=== PATIENT | female | born 1995 | race Caucasian/White ===

== ENCOUNTER 2021-06-20 03:11 | Inpatient (IN) ==
[2021-06-20] MEDS ORDERED: ceFAZolin 2000MG 2,000 MG/15 ML SYR IV SCH (06:00)
[2021-06-20] MEDS ORDERED: CITRIC ACID/SODIUM CITRATE 15 ML UDC PO SCH (06:00)
[2021-06-20] MEDS ORDERED: LACTATED RINGER'S 1,000 ML IV SCH ×3 (07:00→09:30)
[2021-06-20] MEDS ORDERED: TERBUTALINE SULFATE 1 MG/ML VIAL SQ ONE (07:02)
[2021-06-20 07:07] LABS: Basophils # (auto) 0.03 K/uL (0-0.2); Basophils % (auto) 0.2 %; Eosinophils # (auto) 0.46 K/uL (0-0.5); Hematocrit (blood only) 39.5 % (37-47); Hemoglobin 13.5 g/dL (12.0-16.0); Immature Granulocytes # (auto) 0.12 K/uL (0.00-0.02); Immature Granulocytes % (auto) 0.8 %; Lymphocytes # (auto) 2.19 K/uL (1.2-3.4); Lymphocytes % (auto) 14.1 %; Mean Corpuscular Hemoglobin 32.6 pg (25-34); Mean Corpuscular Hgb Conc 34.2 g/dL (32-36); Mean Corpuscular Volume 95.4 fL (80-100); Monocytes # (auto) 0.77 K/uL (0.11-0.59); Neutrophils # (auto) 11.94 K/uL (1.4-6.5); Neutrophils % (auto) 76.9 %; Platelet Count 190 K/uL (130-400); RDW Coefficient of Variation 13.9 % (11.5-14.5); RDW Standard Deviation 48.6 fL (36.4-46.3); Red Blood Count 4.14 M/uL (4.2-5.4); White Blood Count 15.51 K/uL (4.8-10.8)
--- NOTE | 2021-06-20 07:30 | Anesthesiology Consultation ---
Date of Service June 20, 2021 Assessment & Plan (1) Encounter for pre-operative examination: Chart Review Chart Review: Acceptable Risk for Surgery and Patient NOT seen in Pre Admission Testing Consults Requested none History Surgery Operation Date: 06/20/21 07:30 Proposed Procedures p Section in OR - Baltazar Peña MD Height/Weight Height: 5 ft 7 in Weight: 97.522 kg Allergies Allergy/AdvReac Type Severity Reaction Status Date / Time No Known Allergies Allergy Unknown ` Unverified 06/15/21 16:03 Medications Home Medications Medication Instructions Recorded Confirmed Last Taken folic acid 400 mcg tablet 0.4 mg PO HS 06/15/21 06/15/21 Unknown loratadine 10 mg tablet (Claritin) 10 mg PO HS 06/15/21 06/15/21 Unknown [id number] 1 mg 1 tab PO HS 06/15/21 06/15/21 Unknown tablet propranolol 80 mg tablet 80 mg PO HS 06/15/21 06/15/21 Unknown Active Medications Generic Name Dose Route Start Last Admin Trade Name Inocente PRN Reason Stop Dose Admin Lactated Ringer's 1,000 mls @ 999 mls/hr 06/20/21 07:00 06/20/21 07:00 Lr IV 06/20/21 08:00 999 mls/hr .[id number] ALEJANDRO Administration NPO Date Last Intake of Fluids: 06/20/21 Time Last Intake of Fluids: 06:30 Date Last Intake of Solids: 06/19/21 Time Last Intake of Solids: 20:00 Past Medical History Medical History History of migraine Inappropriate sinus tachycardia follows with dr. artemio PAIGE (postoperative nausea and vomiting) Past Family History Family History Mother PONV (postoperative nausea and vomiting) Past Surgical History Surgical History History of cardiac radiofrequency ablation attempted ablation -- unable to complete per pt report History of mandibular surgery hardware present History of tonsillectomy and adenoidectomy History of wisdom tooth extraction Social History Smoking Status: Never smoker Do You Dip or Chew Tobacco: No Hx Alcohol Use: No Hx Substance Use: No substance use type: does not use Physical Exam Vital Signs Last Vital Signs Temp 36.5 C 06/20/21 03:37 Pulse 92 H 06/20/21 07:24 Resp 16 06/20/21 03:37 BP 135/82 06/20/21 03:37 Pulse Ox 100 06/20/21 07:24 Testing Laboratory Results 06/20/21 06:58
[2021-06-20] MEDS ORDERED: LACTATED RINGER'S 500 ML IV PRN (07:33)
[2021-06-20] MEDS ORDERED: KETOROLAC 30 MG/ML VIAL IV PRN (07:33)
[2021-06-20] MEDS ORDERED: MoRPHine SULFATE PF 1 MG/ML 10 ML AMP/VIAL INT SPINAL ONE (07:33)
[2021-06-20] MEDS ORDERED: HYDROmorphone INJ 0.5 MG/0.5 ML SYR IV PRN (07:33)
[2021-06-20] MEDS ORDERED: ONDANSETRON INJ 2 MG/ML 2 ML VIAL IV PRN (07:33)
[2021-06-20] MEDS ORDERED: NALOXONE HCL 1 MG in SODIUM CHLORIDE 0.9% 1000ML 1,000 ML IV PRN (07:33)
[2021-06-20] MEDS ORDERED: NALOXONE HCL 0.08 MG in SYRINGE 1.8 ML IV PRN (07:33)
[2021-06-20] MEDS ORDERED: NALOXONE HCL 0.4 MG/1 ML VIAL/CARP IV PRN (07:33)
[2021-06-20] MEDS ORDERED: diphenhydrAMINE 50 MG/ML VIAL IV PRN (07:33)
[2021-06-20] MEDS ORDERED: ePHEDrine sulfate 50 MG/ML AMP IV PRN (07:33)
[2021-06-20] MEDS ORDERED: NALBUPHINE HCL INJ 10 MG/ML AMP IV PRN (07:33)
[2021-06-20] MEDS ORDERED: fentaNYL citrate 100 MCG/2 ML VIAL ONE (07:36)
[2021-06-20] MEDS ORDERED: MoRPHine SULFATE PF 1 MG/ML 10 ML AMP/VIAL ONE (07:36)
[2021-06-20] MEDS ORDERED: OXYTOCIN 10 UNITS/ML 10ML VIAL ONE ×2 (07:36→08:05)
[2021-06-20] MEDS ORDERED: NO NARCOTICS OR SEDATIVES SCH (07:45)
[2021-06-20] MEDS ORDERED: SODIUM CHLORIDE 0.9% 1000ML 1,000 ML IV SCH (07:45)
[2021-06-20] MEDS ORDERED: PHENYLEPHRINE 100MCG/ML 5ML SYR ONE (07:51)
[2021-06-20] MEDS ORDERED: ONDANSETRON INJ 2 MG/ML 2 ML VIAL ONE (07:52)
[2021-06-20] MEDS ORDERED: METHYLERGONOVINE MALEATE 0.2 MG/ML AMP ONE (08:10)
[2021-06-20] MEDS ORDERED: miSOPROStoL 200 MCG TAB ONE (08:34)
[2021-06-20 08:35] LABS: Base Excess Cord Arterial Bld -1.5 mEq/L (-9-1.8); CO2 Cord Arterial Blood 64 mmHg (39.1-73.5); HCO3 Cord Arterial Blood 28 mmol/L (19.7-28.5); pH Cord Arterial Blood 7.25 (7.1-7.38)
[2021-06-20] MEDS ORDERED: OXYTOCIN 10 UNITS/ML 10ML VIAL IM ONE (08:38)
[2021-06-20 08:40] LABS: Base Excess Cord Venous Blood -1.7 mEq/L (-7.7-1.9); Cord Venous Blood HCO3 24 mmol/L (18.4-26.8); Cord Venous Blood PCO2 44 mmHg (30.4-57.2); Cord Venous Blood PO2 19 mmHg (14.1-43.3); Cord Venous Blood pH 7.36 (7.20-7.44)
[2021-06-20 08:43] LABS: O2 Saturation Cord Venous Bld < 60.0 % (<68); Oxygen Sat Cord Arterial Blood < 60.0 % (<60); PO2 Cord Arterial Blood < 10 mmHg (4.1-31.7)
[2021-06-20] MEDS ORDERED: HYDROCORTISONE ACETATE 25 MG SUPP PR PRN (09:22)
[2021-06-20] MEDS ORDERED: SENNA 8.6 MG TAB PO PRN (09:22)
[2021-06-20] MEDS ORDERED: BENZOCAINE 20% AER SPR 82.5 GM CAN EXT PRN (09:22)
[2021-06-20] MEDS ORDERED: MAGNESIUM HYDROXIDE SUSP 30 ML UDC PO PRN (09:22)
[2021-06-20] MEDS ORDERED: DIPHTHERIA/TETANUS/PERTUSSIS 0.5 ML SYR/VIAL IM ONE (09:22)
--- NOTE | 2021-06-20 09:22 | Post Operative Brief Note ---
Immediate Post Op Note v1 Date of Surgery June 20, 2021 Pre & Post Diagnosis Operation Date: 06/20/21 07:30 Pre-Op Diagnosis: Breech Presentation in labor Post-Op Diagnosis: Breech Presentation in labor I identified the patient and participated in the time-out.: Yes Procedure Operation Date: 06/20/21 07:30 Actual Procedures p Section in LD - Baltazar Peña MD Surgeon Baltazar Peña MD Sheet [facility] dr joel Estimated Blood Loss 500 Findings Consistent with Post-Op Diagnosis Drains Verma Catheter (inserted after spinal with return of clear yellow urine)
--- NOTE | 2021-06-20 10:26 | Operative Report (OR) ---
DATE OF SURGERY: 06/20/2021. INDICATION FOR SURGERY: This is a 26-year-old , due date was 06/23/2021. The patient is 39 wee ks and 4 days. The patient was scheduled for section because of breech presentation on 12/2021. The patient, however, presented early this morning in labor, decision was therefore made to proceed with section. PREOPERATIVE DIAGNOSES: 1. at term. 2. Breech presentation, failed external version. SURGEON: Baltazar Peña MD. CLAIM APPROVER: Patrick De León MD. ANESTHESIA: Spinal. DRAINS: Verma catheter. ESTIMATED BLOOD LOSS: 500 mL. INTRAVENOUS FLUIDS: 2 liters. URINE OUTPUT: 175 mL of clear urine at the end of procedure. SPECIMEN: Live in a [place]ee breech presentation. Placenta is sent to pathology for pathologica l analysis. INTRAOPERATIVE COMPLICATIONS: None. PATIENT CONDITION: Stable. DISPOSITION: Postanesthesia care unit. FINDINGS: Normal female escutcheon. Abdominal findings shows in a [place] breech presentation. Uterus and adnexa appeared grossly normal. Abdomen and pelvis otherwise unremarkable. DESCRIPTION OF PROCEDURE: The patient was taken to the operating room where she was prepped and drap ed in normal sterile fashion. Timeout was called. A Pfannenstiel incision was made with a scalpel a nd carried down to the fascia. Fascia was incised in the midline and extended laterally on both side s. The fascia was sharply dissected off the rectus abdominis muscle. This was done superiorly and i nferiorly. Peritoneum was entered sharply. Once inside the abdomen, an Trevon retractor was placed for retraction. The vesicouterine peritoneum was sharply dissected off the lower segment of the uterus. Low transver se incision was made with a scalpel and extended laterally on both sides with bandage scissors. Infa nt is delivered using breech maneuvers. Delivery was unremarkable. Delayed cord clamp was performed after 1 minute. was handed over to the pediatric team. 's weight is in the pediatric record. Apgars 8 and 9. Cord blood and cord gases were obtained. Placenta was manually removed. Uterus was exteriorized and cleared of all clots and debris. Uterus was closed in 2 layers with Vicryl. There was good hemosta sis post repair. Copious amount of irrigation was used to irrigate the abdomen. Uterus was returned into the abdominal cavity and vesicouterine peritoneum was reapproximated using plain suture. Once again, hemostasis was obtained. Peritoneum was closed using plain suture. Fascia was closed using V icryl stitch. Subcutaneous space showed good hemostasis. Subcutaneous space was reapproximated with plain suture and the skin was closed with dillon. All instruments were removed from the abdomen and accounted for x2 including sponges, retractors and needles. The patient is doing well and was sent to recovery in stable condition. Job ID: [id number]
[2021-06-20] MEDS: OXYTOCIN 20 UNITS in LACTATED RINGER'S 1,000 ML IV SCH ×2 (11:34→20:05)
--- NOTE | 2021-06-20 11:58 | Anesthesiology Progress Note ---
Date of Service June 20, 2021 Anesthesia Post Procedure Vital Signs Vital Signs: Temp Pulse Resp BP Pulse Ox 06/20/21 11:03 70 97 06/20/21 10:58 73 96 06/20/21 10:56 76 125/61 06/20/21 10:53 67 96 06/20/21 10:50 36.6 C 20 06/20/21 10:48 70 96 06/20/21 10:46 66 113/68 06/20/21 10:43 71 96 06/20/21 10:38 69 95 06/20/21 10:35 69 121/68 06/20/21 10:33 76 96 06/20/21 10:28 79 96 06/20/21 10:25 70 118/58 L 06/20/21 10:23 78 96 06/20/21 10:20 20 06/20/21 10:18 72 95 06/20/21 10:16 77 113/53 L 06/20/21 10:13 77 96 06/20/21 10:08 74 94 06/20/21 10:06 69 107/47 L 06/20/21 10:03 81 94 06/20/21 09:59 70 108/54 L 06/20/21 09:58 75 96 06/20/21 09:53 81 95 06/20/21 09:50 36.4 C L 20 06/20/21 09:48 83 96 06/20/21 09:45 78 102/55 L 06/20/21 09:43 81 94 06/20/21 09:40 20 06/20/21 09:38 72 96 06/20/21 09:35 68 91/47 L 06/20/21 09:33 71 96 06/20/21 09:30 20 06/20/21 09:28 71 95 06/20/21 09:25 71 100/49 L 06/20/21 09:23 69 95 06/20/21 09:21 79 92 06/20/21 09:20 16 06/20/21 09:18 88 89 L 06/20/21 09:16 96 H 104/54 L 06/20/21 09:15 86 91 06/20/21 09:12 76 100 06/20/21 09:10 20 06/20/21 09:07 96 H 80 L 06/20/21 09:06 74 101/56 L 06/20/21 09:01 75 99 06/20/21 09:00 20 06/20/21 08:57 71 91 06/20/21 08:56 70 97 06/20/21 08:50 69 99 06/20/21 08:47 36.4 C L 72 20 94/47 L 06/20/21 08:45 74 100 06/20/21 07:29 77 134/83 98 06/20/21 07:24 92 H 100 06/20/21 03:37 36.5 C 90 16 135/82 06/20/21 03:27 90 135/82 Transfer of Care Handoff Completed per policy Notes Mental Status: alert / awake / arousable Patient Amnestic to Procedure: Yes Nausea / Vomiting: adequately controlled Pain: adequately controlled Airway Patency, RR, SpO2: stable & adequate BP & HR: stable & adequate Hydration State: stable & adequate Neuraxial Anesthesia: was administered and sensory block is resolving Anesthetic Complications: no major complications apparent and Pt Satisfied with anesthetic care
[2021-06-20] MEDS: SIMETHICONE 80 MG CHEW PO SCH ×3 (16:31→20:57)
[2021-06-20] MEDS: DOCUSATE SODIUM 100 MG CAP PO SCH (20:57)
[2021-06-21] MEDS ORDERED: ONDANSETRON INJ 2 MG/ML 2 ML VIAL IV PRN (01:33)
[2021-06-21] MEDS ORDERED: IBUPROFEN 600 MG TAB PO PRN (01:33)
[2021-06-21] MEDS ORDERED: DC INTRASPINAL MORPHINE SCH (01:33)
[2021-06-21] MEDS ORDERED: diphenhydrAMINE 50 MG/ML VIAL IV PRN (01:33)
[2021-06-21] MEDS ORDERED: diphenhydrAMINE Capsule 25 MG CAP PO PRN (01:33)
[2021-06-21] MEDS ORDERED: PROMETHAZINE HCL 25 MG in SODIUM CHLORIDE 0.9% 50 ML IV PRN (01:33)
[2021-06-21] MEDS: oxyCODONE/ACETAMINOPHEN 5mg/325mg TAB PO PRN ×5 (01:53→18:39)
[2021-06-21 06:48] LABS: Basophils # (auto) 0.02 K/uL (0-0.2); Basophils % (auto) 0.1 %; Eosinophils # (auto) 0.15 K/uL (0-0.5); Eosinophils % (auto) 1.1 %; Hematocrit (blood only) 34.5 % (37-47); Hemoglobin 11.7 g/dL (12.0-16.0); Immature Granulocytes # (auto) 0.04 K/uL (0.00-0.02); Immature Granulocytes % (auto) 0.3 %; Lymphocytes # (auto) 1.51 K/uL (1.2-3.4); Lymphocytes % (auto) 11.3 %; Mean Corpuscular Hemoglobin 32.5 pg (25-34); Mean Corpuscular Hgb Conc 33.9 g/dL (32-36); Mean Corpuscular Volume 95.8 fL (80-100); Mean Platelet Volume 9.9 fL (7.4-10.4); Monocytes # (auto) 0.78 K/uL (0.11-0.59); Monocytes % (auto) 5.8 %; Neutrophils # (auto) 10.92 K/uL (1.4-6.5); Neutrophils % (auto) 81.4 %; Platelet Count 150 K/uL (130-400); RDW Coefficient of Variation 13.8 % (11.5-14.5); RDW Standard Deviation 47.5 fL (36.4-46.3); White Blood Count 13.42 K/uL (4.8-10.8)
[2021-06-21] MEDS: FERROUS SULFATE 325 MG TAB PO SCH (08:06)
[2021-06-21] MEDS: PRENATAL VITAMIN 1 TAB PO SCH (08:06)
[2021-06-21] MEDS: DOCUSATE SODIUM 100 MG CAP PO SCH ×2 (08:06→20:19)
[2021-06-21] MEDS: SIMETHICONE 80 MG CHEW PO SCH ×4 (08:06→20:19)
--- NOTE | 2021-06-21 09:48 | Obstetrical Progress Note ---
Date of Service June 21, 2021 Subjective Ambulation: limited ambulation Voiding: no voiding problems Passing Gas:: Yes Diet Tolerance:: regular diet Lochia:: Small Feeding Type:: breast feeding Current Pain Level(1-10): 0 doing well Physical Exam Constitutional WD/WN, vitals as above comfortable abdomen soft and non-tender fundus firm incision c/d/i no edema neg Iraj's Results & Data ([facility]) Vital Signs (Past 12 Hours) Vital Signs Temp Pulse Resp BP BP Pulse Ox 06/21/21 08:15 36.5 C 97 H 18 131/89 98 06/21/21 03:25 36.8 C 89 16 126/76 98 06/21/21 01:35 16 97 06/21/21 00:09 16 96 06/20/21 23:15 37.1 C 93 H 16 118/69 95 06/20/21 22:15 16 96 Laboratory Results Laboratory Results - last 48 hr 06/20/21 06/20/21 06/20/21 06:58 08:19 08:19 WBC 15.51 H RBC 4.14 L Hgb 13.5 Hct 39.5 MCV 95.4 MCH 32.6 MCHC 34.2 RDW Std Deviation 48.6 H RDW Coeff of Daysi 13.9 Plt Count 190 MPV 10.0 Immature Gran % (Auto) 0.8 Neut % (Auto) 76.9 Lymph % (Auto) 14.1 [place] % (Auto) 5.0 Eos % (Auto) 3.0 Baso % (Auto) 0.2 Neut # (Auto) 11.94 H Lymph # (Auto) 2.19 [place] # (Auto) 0.77 H Eos # (Auto) 0.46 Baso # (Auto) 0.03 Immature Gran # (Auto) 0.12 H Cord ABG pH 7.25 Cord ABG pCO2 64 Cord ABG pO2 < 10 Cord ABG HCO3 28 Cord ABG Base Excess -1.5 Cord ABG O2 Sat < 60.0 Cord VBG pH 7.36 Cord VBG pCO2 44 Cord VBG pO2 19 Cord VBG HCO3 24 Cord VBG Base Excess -1.7 Cord VBG O2 Sat < 60.0 Barometric Pressure 736.3 736.3 Blood Gas Comments MEADOWS MEADOWS 06/21/21 06:19 WBC 13.42 H RBC 3.60 L Hgb 11.7 L Hct 34.5 L MCV 95.8 MCH 32.5 MCHC 33.9 RDW Std Deviation 47.5 H RDW Coeff of Daysi 13.8 Plt Count 150 MPV 9.9 Immature Gran % (Auto) 0.3 Neut % (Auto) 81.4 Lymph % (Auto) 11.3 [place] % (Auto) 5.8 Eos % (Auto) 1.1 Baso % (Auto) 0.1 Neut # (Auto) 10.92 H Lymph # (Auto) 1.51 [place] # (Auto) 0.78 H Eos # (Auto) 0.15 Baso # (Auto) 0.02 Immature Gran # (Auto) 0.04 H Cord ABG pH Cord ABG pCO2 Cord ABG pO2 Cord ABG HCO3 Cord ABG Base Excess Cord ABG O2 Sat Cord VBG pH Cord VBG pCO2 Cord VBG pO2 Cord VBG HCO3 Cord VBG Base Excess Cord VBG O2 Sat Barometric Pressure Blood Gas Comments
[2021-06-21] MEDS ORDERED: bisacodyL 5 MG TABEC PO SCH (20:00)
[2021-06-21] MEDS ORDERED: PROPRANOLOL HCL LA 80 MG CAPCR PO SCH (21:00)
[2021-06-22] MEDS: oxyCODONE/ACETAMINOPHEN 5mg/325mg TAB PO PRN ×4 (00:40→12:10)
[2021-06-22 07:06] LABS: Hematocrit (blood only) 37.1 % (37-47); Hemoglobin 12.5 g/dL (12.0-16.0)
[2021-06-22] MEDS: SIMETHICONE 80 MG CHEW PO SCH ×2 (08:22→12:10)
[2021-06-22] MEDS: PRENATAL VITAMIN 1 TAB PO SCH (08:22)
[2021-06-22] MEDS: DOCUSATE SODIUM 100 MG CAP PO SCH (08:22)
[2021-06-22] MEDS: FERROUS SULFATE 325 MG TAB PO SCH (08:22)
--- NOTE | 2021-06-22 08:37 | Obstetrical Progress Note ---
Date of Service June 22, 2021 Assessment & Plan Admission and Anticipated Discharge Date Admission Date: June 20, 2021 Subjective Patient is seen and examined. She feels well, no complaints. Desires d/c today Pain is under control with oral meds. Ambulating without dizziness Voiding without difficulty Tolerating regular diet with out N&V Flatus + BM + Bleeding is minimal No fever/ chills/ CP/ SOB/ N&V/ Leg pain Breast feeding without problems Vital Signs Temp Pulse Resp BP BP Pulse Ox 06/22/21 07:35 36.5 C 93 H 20 138/87 99 06/22/21 02:55 73 121/77 06/22/21 00:50 36.7 C 104 H 20 148/91 H 96 06/21/21 15:35 37.1 C 100 H 18 124/77 96 Lab Results 06/20/21 06/20/21 06/20/21 Range/Units 06:58 08:19 08:19 WBC 15.51 H (4.8-10.8) K/uL RBC 4.14 L (4.2-5.4) M/uL Hgb 13.5 (12.0-16.0) g/dL Hct 39.5 (37-47) % MCV 95.4 (80-100) fL MCH 32.6 (25-34) pg MCHC 34.2 (32-36) g/dL RDW Std Deviation 48.6 H (36.4-46.3) fL RDW Coeff of Daysi 13.9 (11.5-14.5) % Plt Count 190 (130-400) K/uL MPV 10.0 (7.4-10.4) fL Immature Gran % (Auto) 0.8 % Neut % (Auto) 76.9 % Lymph % (Auto) 14.1 % [place] % (Auto) 5.0 % Eos % (Auto) 3.0 % Baso % (Auto) 0.2 % Neut # (Auto) 11.94 H (1.4-6.5) K/uL Lymph # (Auto) 2.19 (1.2-3.4) K/uL [place] # (Auto) 0.77 H (0.11-0.59) K/uL Eos # (Auto) 0.46 (0-0.5) K/uL Baso # (Auto) 0.03 (0-0.2) K/uL Immature Gran # (Auto) 0.12 H (0.00-0.02) K/uL Cord ABG pH 7.25 (7.1-7.38) Cord ABG pCO2 64 (39.1-73.5) mmHg Cord ABG pO2 < 10 (4.1-31.7) mmHg Cord ABG HCO3 28 (19.7-28.5) mmol/L Cord ABG Base Excess -1.5 (-9-1.8) mEq/L Cord ABG O2 Sat < 60.0 (<60) % Cord VBG pH 7.36 (7.20-7.44) Cord VBG pCO2 44 (30.4-57.2) mmHg Cord VBG pO2 19 (14.1-43.3) mmHg Cord VBG HCO3 24 (18.4-26.8) mmol/L Cord VBG Base Excess -1.7 (-7.7-1.9) mEq/L Cord VBG O2 Sat < 60.0 (<68) % Barometric Pressure 736.3 736.3 mm/Hg Blood Gas Comments DORI MEADOWS 06/21/21 06/22/21 Range/Units 06:19 06:32 WBC 13.42 H (4.8-10.8) K/uL RBC 3.60 L (4.2-5.4) M/uL Hgb 11.7 L 12.5 (12.0-16.0) g/dL Hct 34.5 L 37.1 (37-47) % MCV 95.8 (80-100) fL MCH 32.5 (25-34) pg MCHC 33.9 (32-36) g/dL RDW Std Deviation 47.5 H (36.4-46.3) fL RDW Coeff of Daysi 13.8 (11.5-14.5) % Plt Count 150 (130-400) K/uL MPV 9.9 (7.4-10.4) fL Immature Gran % (Auto) 0.3 % Neut % (Auto) 81.4 % Lymph % (Auto) 11.3 % [place] % (Auto) 5.8 % Eos % (Auto) 1.1 % Baso % (Auto) 0.1 % Neut # (Auto) 10.92 H (1.4-6.5) K/uL Lymph # (Auto) 1.51 (1.2-3.4) K/uL [place] # (Auto) 0.78 H (0.11-0.59) K/uL Eos # (Auto) 0.15 (0-0.5) K/uL Baso # (Auto) 0.02 (0-0.2) K/uL Immature Gran # (Auto) 0.04 H (0.00-0.02) K/uL Cord ABG pH (7.1-7.38) Cord ABG pCO2 (39.1-73.5) mmHg Cord ABG pO2 (4.1-31.7) mmHg Cord ABG HCO3 (19.7-28.5) mmol/L Cord ABG Base Excess (-9-1.8) mEq/L Cord ABG O2 Sat (<60) % Cord VBG pH (7.20-7.44) Cord VBG pCO2 (30.4-57.2) mmHg Cord VBG pO2 (14.1-43.3) mmHg Cord VBG HCO3 (18.4-26.8) mmol/L Cord VBG Base Excess (-7.7-1.9) mEq/L Cord VBG O2 Sat (<68) % Barometric Pressure mm/Hg Blood Gas Comments PE: General: Alert, orientedx3, NAD CVS: S1S2 RRR Lungs; CTAB Abd: soft, NT, ND, BS+, fundus firm, below Umbilicus Incision: Clean, dry, intact Perineum intact, Lochia rubra minimal Ext; NT, no edema AP: 26 yo s/p C Section, pod# 2 VSS Afebrile doing well Continue routine postop care Encourage ambulation, PO intake All questions were answered Discussed when to call D/C home, f/u in office Results & Data ([facility]) Vital Signs (Past 12 Hours) Vital Signs Temp Pulse Resp BP BP Pulse Ox 06/22/21 07:35 36.5 C 93 H 20 138/87 99 06/22/21 02:55 73 121/77 06/22/21 00:50 36.7 C 104 H 20 148/91 H 96
[2021-06-22] MEDS ORDERED: bisacodyL 10 MG SUPP PR PRN (09:22)
== END 2021-06-22 12:23 | disposition home or self-care (01) | DRG 788 ==
LOC: OPB 03:11 → 4S1 03:15 → 4S2 11:18

== ENCOUNTER 2022-11-06 05:31 | Inpatient (IN) ==
[~2022-11-06 05:31] MED LIST: Patient's HEIGHT &/or WEIGHT Needed SCH
[2022-11-06] MEDS ORDERED: LACTATED RINGER'S 1,000 ML IV SCH ×2 (05:45→09:15)
[2022-11-06] MEDS ORDERED: CITRIC ACID/SODIUM CITRATE 15 ML UDC PO SCH (06:00)
[2022-11-06] MEDS ORDERED: ceFAZolin 2000MG 2,000 MG/15 ML SYR IV SCH (06:00)
[2022-11-06 06:19] LABS: Basophils # (auto) 0.04 K/uL (0-0.2); Basophils % (auto) 0.5 %; Eosinophils # (auto) 0.19 K/uL (0-0.50); Eosinophils % (auto) 2.5 %; Hematocrit (blood only) 33.4 % (37.0-47.0); Hemoglobin 11.7 g/dl (12.0-16.0); Immature Granulocytes # (auto) 0.04 K/uL (0.01-0.20); Immature Granulocytes % (auto) 0.5 %; Lymphocytes # (auto) 1.92 K/uL (1.2-3.4); Lymphocytes % (auto) 24.9 %; Mean Corpuscular Hemoglobin 31.8 pg (25.0-34.0); Mean Corpuscular Volume 90.8 fL (80.0-100.0); Mean Platelet Volume 10.2 fL (9.4-12.4); Monocytes # (auto) 0.47 K/uL (0.11-0.59); Monocytes % (auto) 6.1 %; Neutrophils # (auto) 5.06 K/uL (1.40-6.50); Neutrophils % (auto) 65.5 %; Platelet Count 136 K/uL (130-400); RDW Coefficient of Variation 13.7 % (11.5-14.5); RDW Standard Deviation 45.5 fL (36.4-46.3); Red Blood Count 3.68 M/uL (4.20-5.40); White Blood Count 7.72 K/ul (4.8-10.8)
[2022-11-06] MEDS ORDERED: PHENYLEPHRINE 100MCG/ML 5ML SYR ONE (07:06)
[2022-11-06] MEDS ORDERED: ONDANSETRON INJ 2 MG/ML 2 ML VIAL ONE (07:06)
[2022-11-06] MEDS ORDERED: fentaNYL citrate PF 100 MCG/2 ML VIAL ONE (07:07)
[2022-11-06] MEDS ORDERED: MoRPHine SULFATE PF 1 MG/ML 10 ML AMP/VIAL ONE (07:07)
--- NOTE | 2022-11-06 07:28 | History & Physical Bridge Note ---
Date of Service November 06, 2022 History & Physical Bridge Note I have examined the patient, reviewed the History & Physical and in the interval since the performance of the History & Physical I have noted the following changes of clinical significance: no changes noted
--- NOTE | 2022-11-06 07:54 | Anesthesiology Consultation ---
Date of Service November 06, 2022 Assessment & Plan (1) Encounter for pre-operative examination: Chart Review Chart Review: Acceptable Risk for Surgery and Patient NOT seen in Pre Admission Testing Consults Requested none History Surgery Operation Date: 11/06/22 07:30 Proposed Procedures p Repeat Section - Nato Arevalo MD Height/Weight Height: 5 ft 8 in Weight: 99.018 kg Allergies Allergy/AdvReac Type Severity Reaction Status Date / Time No Known Allergies Allergy Unknown ` Unverified 06/15/21 16:03 Medications Home Medications Medication Instructions Recorded Confirmed Last Taken folic acid 400 mcg tablet 0.4 mg PO HS 06/15/21 11/06/22 11/05/22 [id number] 1 mg 1 tab PO HS 06/15/21 11/06/22 11/05/22 tablet propranolol 80 mg tablet 80 mg PO 06/15/21 11/06/22 11/05/22 Active Medications Generic Name Dose Route Start Last Admin Trade Name Freq PRN Reason Stop Dose Admin Cefazolin Sodium 2,000 mg in 15 mls @ 3.75 mls/min 11/06/22 06:00 11/06/22 07:53 Ancef 2000mg IV 11/06/22 18:00 3.75 mls/min PREOP ALEJANDRO Administration Protocol Past Medical History Medical History Encounter for pre-operative examination History of migraine Inappropriate sinus tachycardia follows with dr. ulloa PONV (postoperative nausea and vomiting) Exercise / Class Metabolic Activity II 4-5 Yardwork/Stairs/Walk up hill Past Family History Family History Mother PONV (postoperative nausea and vomiting) Past Surgical History Surgical History History of cardiac radiofrequency ablation attempted ablation -- unable to complete per pt report History of mandibular surgery hardware present History of tonsillectomy and adenoidectomy History of wisdom tooth extraction Past Anesthesia History No Hx of Anesthesia Complications and No Family Hx of Anesthesia Complications Social History Smoking Status: Never smoker Do You Dip or Chew Tobacco: No Hx Alcohol Use: No Hx Substance Use: No substance use type: does not use Physical Exam Vital Signs Last Vital Signs Temp 36.5 C 11/06/22 05:43 Pulse 73 11/06/22 07:26 Resp 18 11/06/22 05:43 BP 119/74 11/06/22 07:26 Testing Laboratory Results 11/06/22 05:59 Blood Type A Negative 11/06/22 05:59 Antibody Screen NEGATIVE 11/06/22 05:59
[2022-11-06] MEDS ORDERED: NALOXONE HCL 0.4 MG/1 ML VIAL/CARP IV PRN (08:29)
[2022-11-06] MEDS ORDERED: ePHEDrine sulfate 50 MG/ML AMP IV PRN (08:29)
[2022-11-06] MEDS ORDERED: MoRPHine SULFATE PF 1 MG/ML 10 ML AMP/VIAL INT SPINAL ONE (08:29)
[2022-11-06] MEDS ORDERED: PROMETHAZINE HCL 6.25 MG in SODIUM CHLORIDE 0.9% 50 ML IV PRN (08:29)
[2022-11-06] MEDS ORDERED: LACTATED RINGER'S 500 ML IV PRN (08:29)
[2022-11-06] MEDS ORDERED: ONDANSETRON INJ 2 MG/ML 2 ML VIAL IV PRN (08:29)
[2022-11-06] MEDS ORDERED: NALOXONE HCL 1 MG in SODIUM CHLORIDE 0.9% 1000ML 1,000 ML IV PRN (08:29)
[2022-11-06] MEDS ORDERED: NALOXONE HCL 0.08 MG in SYRINGE 1.8 ML IV PRN (08:29)
[2022-11-06] MEDS ORDERED: OXYTOCIN 10 UNITS/ML VIAL ONE (08:29)
[2022-11-06] MEDS ORDERED: NALBUPHINE HCL INJ 10 MG/ML AMP IV PRN (08:29)
[2022-11-06] MEDS ORDERED: HYDROmorphone INJ 0.5 MG/0.5 ML SYR IV PRN (08:29)
[2022-11-06] MEDS ORDERED: diphenhydrAMINE 50 MG/ML VIAL IV PRN (08:29)
[2022-11-06] MEDS ORDERED: SODIUM CHLORIDE 0.9% 1000ML 1,000 ML IV SCH (08:30)
[2022-11-06] MEDS ORDERED: NO NARCOTICS OR SEDATIVES SCH (08:30)
[2022-11-06] MEDS ORDERED: DC INTRASPINAL MORPHINE SCH (08:30)
[2022-11-06] MEDS ORDERED: SENNA 8.6 MG TAB PO PRN (09:14)
[2022-11-06] MEDS ORDERED: BENZOCAINE 20% AER SPR 82.5 GM CAN EXT PRN (09:14)
[2022-11-06] MEDS ORDERED: MAGNESIUM HYDROXIDE SUSP 30 ML UDC PO PRN (09:14)
[2022-11-06] MEDS ORDERED: HYDROCORTISONE ACETATE 25 MG SUPP PR PRN (09:14)
[2022-11-06] MEDS ORDERED: DIPHTHERIA/TETANUS/PERTUSSIS Vaccine (Tdap, Age 7+yrs) 0.5mL SYR/VL IM ONE (09:14)
--- NOTE | 2022-11-06 09:17 | Post Operative Brief Note ---
Immediate Post Op Note v1 Date of Surgery November 06, 2022 Pre & Post Diagnosis Operation Date: 11/06/22 07:30 Pre-Op Diagnosis: , Prior Section Post-Op Diagnosis: , Prior Section I identified the patient and participated in the time-out.: Yes Procedure Operation Date: 11/06/22 07:30 Actual Procedures p Repeat Section(Bilateral) - Nato Arevalo MD Surgeon Nato Arevalo MD [employer] Dr. Nicolas Estimated Blood Loss 500 Findings Consistent with Post-Op Diagnosis live male Apgars 9/9 weight 8#8.4 Fluids 1500 ml. LR Specimens placenta Drains Verma Catheter (Inserted after spinal anesthesia and draining clear yellow urine. ) Anesthesia Type Spinal Complications none Disposition Accompanied Patient To Recovery: Yes Overlapping Procedure I was present for: the critical portions of procedure. I was immediately available: during the entire case. Back up surgeon: used during listed procedure.
--- NOTE | 2022-11-06 09:18 | Anesthesiology Progress Note ---
Date of Service November 06, 2022 Anesthesia Post Procedure Vital Signs Vital Signs: Temp Pulse Resp BP Pulse Ox 11/06/22 09:13 72 111/65 11/06/22 09:12 71 99 11/06/22 07:26 73 119/74 11/06/22 05:48 80 118/77 11/06/22 05:43 36.5 C 18 Transfer of Care Handoff Completed per policy Notes Mental Status: alert / awake / arousable and participated in evaluation Patient Amnestic to Procedure: Yes Nausea / Vomiting: adequately controlled Pain: adequately controlled Airway Patency, RR, SpO2: stable & adequate BP & HR: stable & adequate Hydration State: stable & adequate Neuraxial Anesthesia: was administered and sensory block is resolving Anesthetic Complications: no major complications apparent and Pt Satisfied with anesthetic care
[2022-11-06] MEDS: OXYTOCIN 20 UNITS in LACTATED RINGER'S 1,000 ML IV SCH ×2 (10:02→17:41)
--- NOTE | 2022-11-06 10:34 | Operative Report ---
Post Operative Report Pre & Post Diagnosis Operation Date: 11/06/22 07:30 Pre-Op Diagnosis: , Prior Section Post-Op Diagnosis: , Prior Section I identified the patient and participated in the time-out.: Yes Procedure Operation Date: 11/06/22 07:30 Actual Procedures p Repeat Section(Bilateral) - Nato Arevalo MD Surgeon Nato Arevalo MD Education Instructor Dr. Nicolas Estimated Blood Loss 500 Findings Consistent with Post-Op Diagnosis Live male Apgars 9/9 weight is 8 pounds 8.4 ounces Fluids LR 1500 mL Specimens Placenta Drains Verma with drainage of 150 mL Complications None Indications Term elective repeat section does not desire trial of labor Description of Procedure Description of procedure under satisfactory spinal anesthesia the patient was prepped draped usual sterile fashion. A timeout was called prior to the start of the procedure. Antibiotics were given preop. Low Pfannenstiel incision through her prior scar was then carried down into the layers of the abdomen upon entry into the abdominal cavity bladder flap was then developed with sharp dissection using Metzenbaum scissors. A low segment transverse incision was made on the lower uterine segment the incision was nicked with Allis clamp amniotic fluid was noted to be clear the incision was opened in the AP diameter the infant was then delivered with a vertex with the aid of fundal pressure and the Vectis retractor for the head delivering a live male Apgars were 9 and 9 after a 1 minute cord delay the baby was handed to the general technician present for the delivery Cord blood was obtained placenta was then delivered spontaneously and intact the uterus was then exteriorized. Forceps were then placed on both angles the inferior margin no active bleeding was noted at this Lap pad was then used to curette out tissue from the lining of the uterus no active bleeding was noted Pitocin was started and the IV uterus was closed with a double layer closure starting with 0 Vicryl suture in a continuous interlocking fashion followed by imbricating suture of 0 Vicryl suture. The initial sponge needle instrument count found to be correct. The contents of the pelvic and abdominal cavity were then irrigated to clear. The uterus was placed back into the normal anatomical position. The fracture was then reapproximated from both ends using 0 Vicryl suture in a continuous fashion. Subcuticular space was then irrigated. Subcuticular space was then closed with 3-0 plain suture. The skin was then reapproximated with 4-0 Monocryl subcuticular stitch. Steri-Strips were then applied. Sponge needle instrument count was found to be correct EBL was 500 mL total fluids 1500 mL and urine output 150 ml. The patient was then placed supine on the stretcher taken recovery room in stable condition please note the attestation Dr. Israel was needed for assistance at retraction assist at delivery of the baby with fundal pressure assisted closure of the uterus and abdomen end of dictation thank you I attest to the content of the Intraoperative Record and any orders documented therein. Any exceptions are noted below.
[2022-11-06] MEDS: SIMETHICONE 80 MG CHEW PO SCH ×3 (17:36→21:21)
[2022-11-06] MEDS: KETOROLAC 30 MG/ML VIAL IV PRN (17:37)
[2022-11-06] MEDS ORDERED: PROPRANOLOL HCL 80 MG TAB PO SCH (21:00)
[2022-11-06] MEDS ORDERED: NON-FORMULARY MEDICATION (Prenatal Multivit-Min-Fe-Fa 1 mg Tablet) PO SCH (21:00)
[2022-11-06] MEDS: FOLIC ACID 400 MCG TAB PO SCH (21:21)
[2022-11-06] MEDS: DOCUSATE SODIUM 100 MG CAP PO SCH (21:21)
[2022-11-06] MEDS: PROPRANOLOL HCL LA 80 MG CAPCR PO SCH (21:22)
[2022-11-07] MEDS: KETOROLAC 30 MG/ML VIAL IV PRN (01:43)
[2022-11-07] MEDS ORDERED: KETOROLAC 30 MG/ML VIAL IV PRN (02:30)
[2022-11-07] MEDS ORDERED: ONDANSETRON INJ 2 MG/ML 2 ML VIAL IV PRN (02:30)
[2022-11-07] MEDS ORDERED: diphenhydrAMINE 50 MG/ML VIAL IV PRN (02:30)
[2022-11-07] MEDS ORDERED: MEPERIDINE HCL 50 MG/ML CARP IV PRN (02:30)
[2022-11-07] MEDS ORDERED: diphenhydrAMINE Capsule 25 MG CAP PO PRN (02:30)
[2022-11-07] MEDS ORDERED: PROMETHAZINE HCL 25 MG in SODIUM CHLORIDE 0.9% 50 ML IV PRN (02:30)
[2022-11-07] MEDS: oxyCODONE/ACETAMINOPHEN 5mg/325mg TAB PO PRN ×5 (06:26→23:51)
[2022-11-07] MEDS: IBUPROFEN 600 MG TAB PO PRN ×5 (06:27→23:52)
[2022-11-07 07:15] LABS: Basophils # (auto) 0.03 K/uL (0-0.2); Basophils % (auto) 0.3 %; Eosinophils % (auto) 1.1 %; Hematocrit (blood only) 28.5 % (37.0-47.0); Hemoglobin 10.2 g/dl (12.0-16.0); Immature Granulocytes # (auto) 0.06 K/uL (0.01-0.20); Immature Granulocytes % (auto) 0.7 %; Lymphocytes # (auto) 1.05 K/uL (1.2-3.4); Lymphocytes % (auto) 11.5 %; Mean Corpuscular Hemoglobin 32.7 pg (25.0-34.0); Mean Corpuscular Hgb Conc 35.8 g/dL (32.0-36.0); Mean Corpuscular Volume 91.3 fL (80.0-100.0); Mean Platelet Volume 10.2 fL (9.4-12.4); Monocytes # (auto) 0.56 K/uL (0.11-0.59); Monocytes % (auto) 6.1 %; Neutrophils # (auto) 7.34 K/uL (1.40-6.50); Neutrophils % (auto) 80.3 %; Platelet Count 114 K/uL (130-400); RDW Coefficient of Variation 13.8 % (11.5-14.5); RDW Standard Deviation 45.7 fL (36.4-46.3); Red Blood Count 3.12 M/uL (4.20-5.40); White Blood Count 9.14 K/ul (4.8-10.8)
[2022-11-07] MEDS: OXYTOCIN 20 UNITS in LACTATED RINGER'S 1,000 ML IV SCH (07:59)
[2022-11-07] MEDS: SIMETHICONE 80 MG CHEW PO SCH ×4 (08:10→21:52)
[2022-11-07] MEDS: DOCUSATE SODIUM 100 MG CAP PO SCH ×2 (08:10→20:18)
[2022-11-07] MEDS: FERROUS SULFATE 325 MG TAB PO SCH (08:10)
[2022-11-07] MEDS: PRENATAL VITAMIN 1 TAB PO SCH (08:11)
--- NOTE | 2022-11-07 08:36 | Obstetrical Progress Note ---
Date of Service November 07, 2022 Assessment & Plan (1) delivery delivered: POD #1 Pt doing well Results & Data Vital Signs (Past 12 Hours) Vital Signs Temp Pulse Resp BP Pulse Ox O2 Del Method 11/07/22 02:00 18 99 11/07/22 01:00 18 98 11/07/22 02:35 36.6 C 86 18 113/74 99 Room Air 11/07/22 00:00 18 99 11/06/22 23:30 36.6 C 76 18 111/67 99 Room Air 11/06/22 22:00 18 99 11/06/22 21:00 18 99 11/06/22 23:09 18 95
[2022-11-07] MEDS ORDERED: bisacodyL 5 MG TABEC PO SCH (20:00)
[2022-11-07] MEDS: PROPRANOLOL HCL LA 80 MG CAPCR PO SCH (21:33)
[2022-11-07] MEDS: FOLIC ACID 400 MCG TAB PO SCH (21:33)
[2022-11-08] MEDS: IBUPROFEN 600 MG TAB PO PRN ×2 (05:08→08:34)
[2022-11-08] MEDS: oxyCODONE/ACETAMINOPHEN 5mg/325mg TAB PO PRN ×2 (05:08→08:35)
[2022-11-08 06:38] LABS: Hematocrit (blood only) 28.1 % (37.0-47.0); Hemoglobin 9.8 g/dl (12.0-16.0)
[2022-11-08] MEDS: PRENATAL VITAMIN 1 TAB PO SCH (08:34)
[2022-11-08] MEDS: FERROUS SULFATE 325 MG TAB PO SCH (08:34)
[2022-11-08] MEDS: DOCUSATE SODIUM 100 MG CAP PO SCH (08:34)
[2022-11-08] MEDS ORDERED: bisacodyL 10 MG SUPP PR PRN (09:12)
--- NOTE | 2022-11-08 09:40 | Obstetrical Progress Note ---
Date of Service November 08, 2022 Subjective Ambulation: ambulating normally Voiding: no voiding problems Passing Gas:: Yes Diet Tolerance:: regular diet Lochia:: Small Feeding Type:: breast feeding Current Pain Level(1-10): 0 doing well. plans for d/c Physical Exam Constitutional WD/WN, vitals as above Gastrointestinal (Abdomen) normal bowel sounds, soft, nontender, no hepatosplenomegaly incision c/d/i Musculoskeletal Extremities: extremities normal to inspection Skin no rashes, warm and dry Neurologic patellar DTR's 2+ bilat, sensation intact Psychiatric A+Ox3, euthymic affect Results & Data Vital Signs (Past 12 Hours) Vital Signs Temp Pulse Resp BP Pulse Ox O2 Del Method 11/08/22 07:20 36.7 C 73 16 123/80 97 Room Air 11/07/22 23:55 36.5 C 83 16 126/78 97 Room Air Laboratory Results 11/06/22 11/06/22 11/06/22 05:42 05:59 05:59 WBC 7.72 RBC 3.68 L Hgb 11.7 L Hct 33.4 L MCV 90.8 MCH 31.8 MCHC 35.0 RDW Std Deviation 45.5 RDW Coeff of Daysi 13.7 Plt Count 136 MPV 10.2 Immature Gran % (Auto) 0.5 Neut % (Auto) 65.5 Lymph % (Auto) 24.9 [place] % (Auto) 6.1 Eos % (Auto) 2.5 Baso % (Auto) 0.5 Neut # (Auto) 5.06 Lymph # (Auto) 1.92 [place] # (Auto) 0.47 Eos # (Auto) 0.19 Baso # (Auto) 0.04 Immature Gran # (Auto) 0.04 SARS-CoV-2, RNA, NAAT NEGATIVE Blood Type A Negative Antibody Screen NEGATIVE 11/07/22 11/08/22 06:41 06:07 WBC 9.14 RBC 3.12 L Hgb 10.2 L 9.8 L Hct 28.5 L 28.1 L MCV 91.3 MCH 32.7 MCHC 35.8 RDW Std Deviation 45.7 RDW Coeff of Daysi 13.8 Plt Count 114 L MPV 10.2 Immature Gran % (Auto) 0.7 Neut % (Auto) 80.3 Lymph % (Auto) 11.5 [place] % (Auto) 6.1 Eos % (Auto) 1.1 Baso % (Auto) 0.3 Neut # (Auto) 7.34 H Lymph # (Auto) 1.05 L [place] # (Auto) 0.56 Eos # (Auto) 0.10 Baso # (Auto) 0.03 Immature Gran # (Auto) 0.06 SARS-CoV-2, RNA, NAAT Blood Type Antibody Screen
--- NOTE | 2022-11-09 10:42 | Discharge Summary ---
Date of Service November 09, 2022 Admission HPI Per Admitting Provider The patient is a 27-year-old female P1001 at 39 weeks admitted for a repeat section. The patient refused a trial of labor. Discharge Data Consultations 11/06/22 05:40 Consult Anesthesiology Stat Procedures Performed Operation Date: 11/06/22 07:30 Actual Procedures p Repeat Section(Bilateral) - Nato Arevalo MD Hospital Course (1) delivery delivered: The patient underwent a repeat section under spinal anesthesia without difficulty. She delivered a live male Apgars were 9 and 9 weight was 8 pounds 8.4 ounces Discharge Instructions Home-going instructions were reviewed with the patient the patient was given Motrin for pain along with Percocet for pain she will be followed up in the office in 1 week for an incision check.
== END 2022-11-08 11:37 | disposition home or self-care (01) | DRG 788 ==
LOC: 4S1 05:31 → EDSTATUS 07:30 → 4E2 11:51

== ENCOUNTER 2024-11-06 07:05 | Inpatient (IN) ==
--- NOTE | 2024-10-30 10:19 | Anesthesiology Consultation ---
Date of Service October 30, 2024 Assessment & Plan (1) Encounter for pre-operative examination: Chart Review Chart Review: entry level marketing representative initiated -Infectious Disease screening: Per PAT nursing assessment on 10/30/24. No known infectious disease contacts in past 10 days or current infectious disease symptoms. No recent travel outside the country. Repeat C section 11/06/22= Done under SAB at L4-5 with 1 attempt History Surgery Operation Date: 11/06/24 09:05 Proposed Procedures p Repeat Section, - Cheryle Cuevas MD s With Bilateral Salpingectomy - Cheryle Cuevas MD Height/Weight Height: 5 ft 8 in Weight: 104.326 kg Allergies Allergy/AdvReac Type Severity Reaction Status Date / Time No Known Allergies Allergy Unknown ` Verified 10/30/24 08:38 Medications Home Medications Medication Instructions Recorded Confirmed Last Taken folic acid 400 mcg tablet 0.4 mg PO QAM 06/15/21 10/30/24 11/05/22 [id number] 1 mg 1 tab PO QAM 06/15/21 10/30/24 11/05/22 tablet propranolol 80 mg capsule,24 80 mg PO HS 11/06/22 10/30/24 Unknown hr,extended release acetaminophen 500 mg capsule 500 mg PO QID PRN Pain 10/30/24 10/30/24 Unknown loratadine 10 mg tablet (Claritin) 10 mg PO QAM 10/30/24 10/30/24 Unknown Past Medical History Medical History Adverse effect of anesthesia 24 hour itching with 1st section - 2021 / pt denies any issues with 2022 Adverse effect of anesthesia "During my first (2021), I was having a diffcult time breathing. I had to keep focusing on breathing and getting my chest to rise. I was really tired and had to keep telling myself I had to stay awake because of it." as per patient - pt denies any issues with second in 2022 - previous x2 [facility]areans done at [facility] History of migraine "Weather Related" as per patient Inappropriate sinus tachycardia PRN visits with [facility]iology William PONV (postoperative nausea and vomiting) immediately after getting spinal - as per patient Seasonal allergies Past Family History Family History Mother PONV (postoperative nausea and vomiting) Past Surgical History Surgical History History of cardiac radiofrequency ablation attempted ablation - unable to complete per pt report [facility] History of section x2 History of mandibular surgery lower - hardware present History of tonsillectomy and adenoidectomy History of wisdom tooth extraction Social History Smoking Status: Never smoker Do You Dip or Chew Tobacco: No Hx Alcohol Use: No Hx Substance Use: No substance use type: does not use
[2024-11-06 07:39] LABS: Hematocrit (blood only) 32.2 % (37.0-47.0); Hemoglobin 10.9 g/dl (12.0-16.0); Mean Corpuscular Hemoglobin 29.9 pg (25.0-34.0); Mean Corpuscular Hgb Conc 33.9 g/dL (32.0-36.0); Mean Corpuscular Volume 88.2 fL (80.0-100.0); Mean Platelet Volume 9.9 fL (9.4-12.4); Platelet Count 181 K/uL (130-400); RDW Coefficient of Variation 14.3 % (11.5-14.5); RDW Standard Deviation 46.2 fL (36.4-46.3); Red Blood Count 3.65 M/uL (4.20-5.40)
[2024-11-06] MEDS ORDERED: SODIUM CHLORIDE 0.9% 100 ML IV PRN (08:17)
[2024-11-06] MEDS: LACTATED RINGER'S 1,000 ML IV SCH ×2 (08:29→12:29)
--- NOTE | 2024-11-06 08:35 | History & Physical Report ---
Date of Service November 06, 2024 Assessment & Plan (1) delivery delivered: Present on Admission?: No (2) Sterilization: Present on Admission?: No Plan Admit to L and D NPO/IV Fluids Ancef 2 gm labs Verma to gravity Bicitra Verma to gravity Consent obtained Discussed the risk and benefits of the section and BTL , pt verbalized understanding. she verbalized all the explanation. OR and Anesthesia informed. Admission and Anticipated Discharge Date Admission Date: November 06, 2024 History of Present Illness Chief Complaint: scheduled repeat section , Bilateral tubal ligation Primary Care Provider: NO PCP pt 29 yr old IUP at 39 weeks here for scheduled repeat low transverse section and bilateral tubal ligation. pt denies regular uterine contractions, vaginal bleeding, leaking of fluid per vagina. etc. Reports good movement. Allergies Allergy/AdvReac Type Severity Reaction Status Date / Time No Known Allergies Allergy Unknown ` Verified 10/30/24 08:38 Home Medications Medication Instructions Recorded Confirmed Type [id number] 1 mg 1 tab PO QAM 06/15/21 11/06/24 History tablet propranolol 80 mg capsule,24 80 mg PO HS 11/06/22 11/06/24 History hr,extended release loratadine 10 mg tablet (Claritin) 10 mg PO QAM 10/30/24 11/06/24 History Patient History Medical History Adverse effect of anesthesia "During my first (2021), I was having a diffcult time breathing. I had to keep focusing on breathing and getting my chest to rise. I was really tired and had to keep telling myself I had to stay awake because of it." as per patient - pt denies any issues with second in 2022 - previous x2 cesareans done at [facility] Adverse effect of anesthesia 24 hour itching with 1st section - 2021 / pt denies any issues with 2022 Seasonal allergies PONV (postoperative nausea and vomiting) immediately after getting spinal - as per patient History of migraine "Weather Related" as per patient Inappropriate sinus tachycardia PRN visits with [facility]iology William Surgical History History of section x2 History of cardiac radiofrequency ablation attempted ablation - unable to complete per pt report - [facility] Dr Thomas History of mandibular surgery lower - hardware present History of wisdom tooth extraction History of tonsillectomy and adenoidectomy Family History Mother PONV (postoperative nausea and vomiting) Social History Smoking Status: Never smoker Second Hand Exposure: No; Do You Dip or Chew Tobacco: No; Tobacco Cessation Education Requested by Patient: No Hx Alcohol Use: No Hx Substance Use: No Preferred Language: Frisian Communication Ability: Effective Cafeteria Worker Required: No Beliefs That Will Affect Care: None marital status: Current Living Situation: Spouse and Family Other Information That Helps Us Care for You: No Feels Safe at Home: Yes Safety Concerns: Feels Safe At This Time Assistive Devices: None OB History Priri C/S x 2 Review of Systems All systems reviewed & are unremarkable except as noted in HPI & below as per Subjective / HPI as per Subjective / HPI as per Subjective / HPI as per Subjective / HPI as per Subjective / HPI as per Subjective / HPI Physical Exam Constitutional: WD/WN, vitals as above Respiratory: normal respiratory effort, lungs clear to auscultation Cardiovascular: RRR, no murmur, no edema Gastrointestinal (Abdomen): normal bowel sounds, soft, nontender, no hepatosplenomegaly Skin: no rashes, warm and dry Psychiatric: A+Ox3, euthymic affect Genitourinary: OB Exam Monitor Tracing: + external FHT monitor used, + external uterine monitor used and + category I deferred Results & Data Vital Signs (Past 12 Hours) Vital Signs Temp Pulse Resp BP 11/06/24 07:24 85 116/77 11/06/24 07:19 36.7 C 20 Monitoring External Monitor 140s, Good variabilty Tocodynamometer No regular uterine contractions
[2024-11-06] MEDS ORDERED: ONDANSETRON INJ 2 MG/ML 2 ML VIAL ONE (08:47)
[2024-11-06] MEDS ORDERED: MoRPHine SULFATE PF 1 MG/ML 10 ML AMP/VIAL ONE (08:47)
[2024-11-06] MEDS ORDERED: OXYTOCIN 10 UNITS/ML VIAL ONE ×3 (08:47→11:42)
[2024-11-06] MEDS ORDERED: PHENYLEPHRINE HCL 25 MG/250 ML NSS IV ONE (08:50)
[2024-11-06] MEDS: ACETAMINOPHEN 500 MG TAB PO SCH (08:58)
[2024-11-06] MEDS: ceFAZolin 2000MG 2,000 MG/15 ML SYR IV SCH (10:48)
[2024-11-06] MEDS ORDERED: MEPERIDINE HCL 25 MG/ML CARP/VIAL IV PRN (11:59)
[2024-11-06] MEDS ORDERED: HYDROmorphone INJ 0.5 MG/0.5 ML SYR IV PRN (11:59)
[2024-11-06] MEDS ORDERED: MoRPHine SULFATE 2 MG/ML CARP IV PRN (11:59)
[2024-11-06] MEDS ORDERED: oxyCODONE HCL IR 5 MG TAB (IMMEDIATE RELEASE) PO PRN (11:59)
[2024-11-06] MEDS ORDERED: MoRPHine SULFATE PF 1 MG/ML 10 ML AMP/VIAL INT SPINAL ONE (11:59)
[2024-11-06] MEDS ORDERED: LACTATED RINGER'S 500 ML IV PRN (11:59)
[2024-11-06] MEDS ORDERED: NALOXONE HCL 0.08 MG in SYRINGE 1.8 ML IV PRN (11:59)
[2024-11-06] MEDS ORDERED: NALBUPHINE HCL INJ 10 MG/ML AMP IV PRN (11:59)
[2024-11-06] MEDS ORDERED: NALOXONE HCL 1 MG in SODIUM CHLORIDE 0.9% 1,000 ML IV PRN (11:59)
[2024-11-06] MEDS ORDERED: NALOXONE HCL 0.4 MG/1 ML VIAL/CARP IV PRN (11:59)
[2024-11-06] MEDS ORDERED: ePHEDrine sulfate 50 MG/ML AMP IV PRN (11:59)
[2024-11-06] MEDS ORDERED: PROMETHAZINE 6.25 MG/50.25 ML BAG IV PRN (11:59)
[2024-11-06] MEDS ORDERED: ONDANSETRON INJ 2 MG/ML 2 ML VIAL IV PRN (11:59)
[2024-11-06] MEDS ORDERED: DC INTRASPINAL MORPHINE SCH (12:00)
[2024-11-06] MEDS ORDERED: SODIUM CHLORIDE 0.9% 1,000 ML IV SCH (12:00)
[2024-11-06] MEDS ORDERED: NO NARCOTICS OR SEDATIVES SCH (12:00)
[2024-11-06] MEDS ORDERED: CALCIUM CARBONATE 500 MG CHEWABLE TAB PO PRN (12:11)
[2024-11-06] MEDS ORDERED: BENZOCAINE 20% SPRY 85 APPLN/85 GM CAN EXT PRN (12:11)
[2024-11-06] MEDS ORDERED: MAGNESIUM HYDROXIDE SUSP 30 ML UDC PO PRN (12:11)
[2024-11-06] MEDS ORDERED: HYDROCORTISONE ACETATE 25 MG SUPP PR PRN (12:11)
[2024-11-06] MEDS ORDERED: SENNA 8.6 MG TAB PO PRN (12:11)
[2024-11-06] MEDS ORDERED: LACTATED RINGER'S 1,000 ML IV SCH (12:15)
--- NOTE | 2024-11-06 12:15 | Post Operative Brief Note ---
Immediate Post Op Note Date of Surgery November 06, 2024 Pre & Post Diagnosis Operation Date: 11/06/24 09:05 Pre-Op Diagnosis: 1. Scheduled Repeat Section 2. Sterile Bilateral Tubal Ligation Post-Op Diagnosis: Same I identified the patient and participated in the time-out.: Yes Procedure Operation Date: 11/06/24 09:05 Actual Procedures p Section in LD; Repeat Lower Uterine Transverse Section for the of a live boy at 1130; Bilateral Tubal Ligation(Bilateral) - Cheryle Cuevsa MD Surgeon Cheryle Cuevas MD Clay Burner Dr. Maria Isabel HARRELL available for retraction Quantitative Blood Loss (QBL) 249 cc Findings Consistent with Post-Op Diagnosis Specimens Specimen Description: 1. Placenta: Hold 2. Cord Blood Obtained 3. Left and Right Fallopian Tubes Drains Verma Catheter (Verma catheter inserted without difficulty. Patent and draining clear yellow urine. ) Complications none Disposition Accompanied Patient To Recovery: No
--- NOTE | 2024-11-06 12:17 | Operative Report ---
Post Operative Report Pre & Post Diagnosis Operation Date: 11/06/24 09:05 Pre-Op Diagnosis: 1. Scheduled Repeat Section 2. Sterile Bilateral Tubal Ligation Post-Op Diagnosis: Same I identified the patient and participated in the time-out.: Yes Procedure Operation Date: 11/06/24 09:05 Actual Procedures p Section in LD; Repeat Lower Uterine Transverse Section for the of a live boy infant at 1130; Bilateral Tubal Ligation(Bilateral) - Cheryle Cuevas MD Surgeon Cheryle Cuevas MD Workers Compensation Specialist Dr. Maria Isabel HARRELL available for retraction Quantitative Blood Loss (QBL) 249 cc Findings Consistent with Post-Op Diagnosis Specimens bilateral ( right and left) fallopian tubes Drains Verma catheter Anesthesia Type Spinal Complications none Disposition Accompanied Patient To Recovery: No Description of Procedure Description of Procedure Patient brought to the operating room Prepped and draped in normal sterile fashion in dorsal supine position with a leftward tilt. Time out is performed. Patient is identified by name and date of . Allergy and antibiotics and reviewed and confirmed. Ancef 2 gm given before the procedure. Verma catheter in placed. Skin check is performed to see if anesthesia is adequate A Pfannenstiel incision is made and carried out to the fascia with a scalpel. Fascia is incised in the midline extended laterally on both sides with Valencia scissors. Neda's were used to grab the superior part of the fascial incision and the rectus abdominis muscle dissected with Valencia scissors.. Same procedure was performed on the lower section of the fascia. The rectus muscle is then in the midline and the peritoneum identified, tented up and entered sharply with the Metzenbaum scissors. The peritoneal incision was then extended superiorly and inferiorly with good visualization of the bladder. Vesicouterine peritoneum was identified, grasped with pickups and entered sharply with Metzenbaum scissors. The incision was then extended laterally and the bladder flap created with Metzenbaum scissors. The lower uterine segment incision was performed in a transverse fashion with a scalpel. The 's head was delivered atraumatically followed by the delivery of the body. There is no nuchal cord. Nose and mouth suctioned with the bulb suction. Delayed cord clamping performed and cord is then clamped and cut and is handed over to the waiting pediatric team. Cord blood obtained The placenta is then removed manually the uterus is exteriorized and cleared of all clots and debris. Uterine incision it repaired with 0-Vicryl in a locking fashion. A second layer of 0-Vicryl is used to obtain excellent hemostasis. Uterus is placed back into the abdominal cavity. bilateral fallopian tubes are noted to be normal , healthy. left fallopian tube grasped with Shandra clamp, using the hand held ligature, along the mesosalpinx , fallopian tube from the isthmus to the fimbriae, coagulated and cut and the tube sent to pathology. same repeated on the right side. Gutters were cleared of all clots and debris. Hemostasis was obtained. The rectus abdominis muscle was examined to ensure there no bleeding. The fascia was closed in a running fashion. Both fascial layers are closed together using 0-Vicryl suture. Subcutaneous space is checked with good hemostasis was confirmed. Subcutaneous space is approximated with 2.0 Monocryl suture. Skin is closed with 3.0 Vicryl on Shreyas needle. The patient tolerated procedure well sponge just labs needle counts were correct x2 patient is sent to recovery in stable condition Workers Compensation Specialist was necessary for retraction and manipulation of instruments in order to provide for a safe operation I attest to the content of the Intraoperative Record and any orders documented therein. Any exceptions are noted below. I attest to the content of the Intraoperative Record and any orders documented therein. Any exceptions are noted below.
[2024-11-06] MEDS: KETOROLAC 30 MG/ML VIAL IV SCH (12:25)
[2024-11-06] MEDS: CITRIC ACID/SODIUM CITRATE 15 ML UDC PO SCH (12:29)
[2024-11-06] MEDS: OXYTOCIN 20 UNITS/LR 1,002 ML IV SCH (12:39)
--- NOTE | 2024-11-06 14:06 | Anesthesiology Progress Note ---
Date of Service November 06, 2024 Anesthesia Post Procedure Vital Signs Vital Signs: Temp Pulse Resp BP Pulse Ox 11/06/24 14:03 66 99 11/06/24 13:58 70 106/59 L 99 11/06/24 13:53 74 98 11/06/24 13:48 77 109/70 97 11/06/24 13:43 75 97 11/06/24 13:38 98 11/06/24 13:38 71 11/06/24 13:38 67 119/67 11/06/24 13:33 70 97 11/06/24 13:28 79 114/67 97 11/06/24 13:23 80 97 11/06/24 13:18 81 122/79 97 11/06/24 13:13 79 97 11/06/24 13:09 78 127/61 11/06/24 13:08 80 97 11/06/24 13:03 83 97 11/06/24 13:00 83 20 97 11/06/24 12:58 84 96 11/06/24 12:53 74 97 11/06/24 12:51 71 20 115/72 99 11/06/24 12:48 71 115/72 99 11/06/24 12:46 73 20 97 11/06/24 12:43 73 97 11/06/24 12:38 63 18 100 11/06/24 12:38 100 11/06/24 12:38 73 11/06/24 12:38 75 113/70 11/06/24 12:33 63 100 11/06/24 12:30 64 18 112/59 L 100 11/06/24 12:28 100 11/06/24 12:28 64 11/06/24 12:28 59 L 112/59 L 11/06/24 12:23 61 100 11/06/24 12:18 18 11/06/24 12:18 100 11/06/24 12:18 76 11/06/24 12:18 73 122/62 11/06/24 12:13 73 100 11/06/24 12:08 36.5 C 76 18 122/62 100 11/06/24 12:08 78 123/70 98 11/06/24 07:24 85 116/77 11/06/24 07:19 36.7 C 20 Transfer of Care Handoff Completed per policy Notes Mental Status: alert / awake / arousable Nausea / Vomiting: adequately controlled Pain: adequately controlled Airway Patency, RR, SpO2: stable & adequate BP & HR: stable & adequate Hydration State: stable & adequate Neuraxial Anesthesia: was administered and sensory block is resolving Anesthetic Complications: no major complications apparent and Pt Satisfied with anesthetic care
[2024-11-06] MEDS: diphenhydrAMINE 50 MG/ML VIAL IV PRN (14:08)
[2024-11-06] MEDS: SIMETHICONE 80 MG CHEW PO SCH (15:10)
[2024-11-06] MEDS ORDERED: Nursing to Pharmacy Communication SCH (15:30)
[2024-11-06] MEDS: ACETAMINOPHEN 325 MG TAB PO SCH (18:11)
[2024-11-06] MEDS: DIPHTHER/TETAN/PERTUS Vaccine (Tdap, Adol/Adult) 0.5mL IM ONE (20:43)
[2024-11-06] MEDS: PROPRANOLOL HCL 80 MG TAB PO SCH (20:43)
[2024-11-06] MEDS: DOCUSATE SODIUM 100 MG CAP PO SCH (20:43)
[2024-11-07] MEDS ORDERED: diphenhydrAMINE Capsule 25 MG CAP PO PRN (06:00)
[2024-11-07] MEDS ORDERED: diphenhydrAMINE 50 MG/ML VIAL IV PRN (06:00)
[2024-11-07] MEDS ORDERED: PROMETHAZINE 12.5 MG/50.5 ML BAG IV PRN (06:00)
[2024-11-07] MEDS ORDERED: ONDANSETRON INJ 2 MG/ML 2 ML VIAL IV PRN (06:00)
[2024-11-07] MEDS ORDERED: HYDROmorphone INJ 0.5 MG/0.5 ML SYR IV PRN (06:00)
[2024-11-07 07:32] LABS: Basophils # (auto) 0.02 K/uL (0.00-0.20); Basophils % (auto) 0.2 %; Eosinophils # (auto) 0.21 K/uL (0.00-0.50); Eosinophils % (auto) 2.2 %; Hematocrit (blood only) 28.8 % (37.0-47.0); Hemoglobin 9.7 g/dl (12.0-16.0); Immature Granulocytes # (auto) 0.05 K/uL (0.01-0.20); Immature Granulocytes % (auto) 0.5 %; Lymphocytes # (auto) 1.13 K/uL (1.20-3.40); Lymphocytes % (auto) 11.9 %; Mean Corpuscular Hemoglobin 30.2 pg (25.0-34.0); Mean Corpuscular Hgb Conc 33.7 g/dL (32.0-36.0); Mean Corpuscular Volume 89.7 fL (80.0-100.0); Mean Platelet Volume 9.9 fL (9.4-12.4); Monocytes # (auto) 0.58 K/uL (0.11-0.59); Monocytes % (auto) 6.1 %; Neutrophils # (auto) 7.53 K/uL (1.40-6.50); Neutrophils % (auto) 79.1 %; Platelet Count 142 K/uL (130-400); RDW Coefficient of Variation 14.1 % (11.5-14.5); RDW Standard Deviation 46.3 fL (36.4-46.3); Red Blood Count 3.21 M/uL (4.20-5.40); White Blood Count 9.52 K/ul (4.8-10.8)
[2024-11-07] MEDS: PRENATAL VITAMIN 1 TAB PO SCH (07:53)
[2024-11-07] MEDS: FERROUS SULFATE 325 MG TAB PO SCH (07:53)
--- NOTE | 2024-11-07 08:57 | Obstetrical Progress Note ---
Date of Service November 07, 2024 Assessment & Plan (1) Normal course: Plan continue routine care regular diet encourage ambulation discharge plan for tomorrow Admission and Anticipated Discharge Date Admission Date: November 06, 2024 Subjective s/p repeat low transverse section, BTL. pt doing well. Denies heavy vaginal bleeding, gross surgical pain, shortness of breadth, palpitations, dizziness etc. Normal lochia. Review of Systems Review of Systems: All systems reviewed & are unremarkable except as noted in HPI & below Constitutional: as per Subjective / HPI Respiratory: as per Subjective / HPI Cardiovascular: as per Subjective / HPI Gastrointestinal: as per Subjective / HPI Physical Exam Constitutional: WD/WN, vitals as above Respiratory: normal respiratory effort, lungs clear to auscultation Cardiovascular: RRR, no murmur, no edema Gastrointestinal (Abdomen): normal bowel sounds, soft, nontender, no hepatosplenomegaly incision clean , dry, intact Results & Data Vital Signs (Past 12 Hours) Vital Signs Temp Pulse Resp BP Pulse Ox O2 Del Method 11/07/24 07:53 Room Air 11/07/24 07:53 36.5 C 67 18 105/68 98 Room Air 11/07/24 05:30 18 11/07/24 05:25 36.3 C L 87 18 106/70 11/07/24 04:30 18 11/07/24 03:30 18 11/07/24 02:30 18 11/07/24 01:30 18 11/07/24 00:30 18 11/07/24 00:30 36.5 C 76 18 110/71 11/06/24 23:30 18 11/06/24 22:30 18 11/06/24 21:30 18
[2024-11-07] MEDS ORDERED: KETOROLAC 30 MG/ML VIAL IV PRN (12:11)
[2024-11-07] MEDS: IBUPROFEN 600 MG TAB PO SCH (12:28)
[2024-11-07] MEDS ORDERED: Nursing to Pharmacy Communication SCH (15:15)
[2024-11-07 17:15] VITALS: O2SAT 97
[2024-11-07] MEDS: bisacodyL 5 MG TABEC PO SCH (19:49)
[2024-11-07] MEDS: oxyCODONE HCL IR 5 MG TAB (IMMEDIATE RELEASE) PO PRN (19:55)
[2024-11-07] MEDS: PROPRANOLOL HCL 80 MG TAB PO SCH (19:55)
[2024-11-08 06:32] LABS: Hematocrit (blood only) 30.1 % (37.0-47.0)
[2024-11-08 07:46] VITALS: BP 126/83; RESP 18; TEMP 97.7
--- NOTE | 2024-11-08 09:31 | Obstetrical Progress Note ---
Date of Service November 08, 2024 Assessment & Plan (1) delivery delivered: Discharged Subjective Ambulation: ambulating normally Voiding: no voiding problems Passing Gas:: Yes Diet Tolerance:: regular diet Lochia:: Small Feeding Type:: bottle feeding Current Pain Level(1-10): 0 doing well plans for d/c today Physical Exam Constitutional WD/WN, vitals as above Gastrointestinal (Abdomen) Inspection/Auscultation: abdomen normal to inspection incision c/d/i Musculoskeletal Extremities: extremities normal to inspection Skin no rashes, warm and dry Neurologic patellar DTR's 2+ bilat, sensation intact Psychiatric A+Ox3, euthymic affect Results & Data Vital Signs (Past 12 Hours) Vital Signs Temp Pulse Resp BP Pulse Ox O2 Del Method 11/08/24 07:30 36.5 C 87 18 126/83 Room Air 11/07/24 22:50 36.6 C 79 16 131/81 97 Room Air Laboratory Results 11/06/24 11/07/24 11/08/24 07:27 07:02 06:00 WBC 9.80 9.52 RBC 3.65 L 3.21 L Hgb 10.9 L 9.7 L 10.0 L Hct 32.2 L 28.8 L 30.1 L MCV 88.2 89.7 MCH 29.9 30.2 MCHC 33.9 33.7 RDW Std Deviation 46.2 46.3 RDW Coeff of Daysi 14.3 14.1 Plt Count 181 142 MPV 9.9 9.9 Immature Gran % (Auto) 0.5 Neut % (Auto) 79.1 Lymph % (Auto) 11.9 [place] % (Auto) 6.1 Eos % (Auto) 2.2 Baso % (Auto) 0.2 Neut # (Auto) 7.53 H Lymph # (Auto) 1.13 L [place] # (Auto) 0.58 Eos # (Auto) 0.21 Baso # (Auto) 0.02 Immature Gran # (Auto) 0.05 Treponema pallidum Ab Negative Blood Type A Negative Antibody Screen NEGATIVE Crossmatch See Detail
[2024-11-08 09:42] VITALS: PULSE 96
[2024-11-08] MEDS ORDERED: IBUPROFEN 600 MG TAB PO PRN (12:11)
[2024-11-08] MEDS ORDERED: bisacodyL 10 MG SUPP PR PRN (12:11)
[2024-11-08] MEDS ORDERED: ACETAMINOPHEN 325 MG TAB PO PRN (18:11)
== END 2024-11-08 10:55 | disposition home or self-care (01) | DRG 785 ==
LOC: 4S1 07:05 → EDSTATUS 09:05 → 4E2 14:26